=== PATIENT | female | born 1965 | race African-American/Black ===

== ENCOUNTER 2022-05-31 14:52 | Emergency (ER) | payer SELFPAY ==
[2022-05-31] VITALS (14 sets, daily range): BP systolic 91–120; BP diastolic 70–86; PULSE 77–97; RESP 12–17; TEMP 36.6; O2SAT 96–100
--- NOTE | 2022-05-31 15:02 | ECG_ITS ---
Measurements Intervals [place] Rate: 81 P: 23 AK: 152 QRS: 22 QRSD: 94 T: 33 QT: 380 QTc: 442 Interpretive Statements SINUS RHYTHM ST ELEVATION IN HIGH LATERAL LEADS- PROBABLY EARLY REPOLARIZATION ABNORMALITY BASELINE ARTIFACT- I, III, AVL, AVF, V4 BORDERLINE ECG Electronically Signed On 05-31-2022 16:24:39 CDT by Lars Olvera D.O.
[2022-05-31 15:32] LABS: Basophils Percent Auto 0.5 % (0.2-1.2); Eosinophils Absolute Auto 0.2 K/mm3 (0-0.3); Eosinophils Percent Auto 2.7 % (0-4.4); Hematocrit 34.9 % (37.0-47.0); Hemoglobin 10.9 g/dL (12.0-15.0); Immature Granulocyte Absolute 0.01 K/mm3 (0.00-0.031); Immature Granulocyte Percent A 0.2 % (0-0.5); Lymphocytes Absolute Auto 2.24 K/mm3 (0.9-3.2); Lymphocytes Percent Auto 38.4 % (18.3-44.2); Mean Corpuscular HGB Conc 31.2 g/dl (32-36); Mean Corpuscular Hemoglobin 26.3 pg (26-34); Mean Corpuscular Volume 84.3 fl (80-100); Mean Platelet Volume 9.6 fl (7.4-10.4); Monocytes Absolute Auto 0.4 K/mm3 (0.1-0.6); Neutrophils Percent Auto 51.2 % (45.5-73.1); Platelet Count Result 313 k/mm3 (150-375); Red Blood Count 4.14 M/mm3 (4.2-5.4); Red Cell Distribution Width 13.9 % (11.5-14.5); White Blood Count 5.8 K/mm3 (4.5-10.0)
[2022-05-31 15:42] LABS: Alanine Aminotransferase 22 U/L (6-35); Albumin Level 4.1 g/dL (3.5-5.1); Alkaline Phosphatase 66 U/L (38-126); Anion Gap 6 mmol/L (8-16); Aspartate Amino Transferase 23 U/L (14-36); Bilirubin,Total 0.3 mg/dL (0.2-1.3); Blood Urea Nitrogen 13 mg/dL (7-17); Calcium 8.4 mg/dL (8.4-10.2); Carbon Dioxide 28 mmol/L (22-30); Chloride 107 mmol/L (98-107); Estimated CRCL calculation 66 ml/min; Estimated Glomerular Filt Rate > 60; Glucose 140 mg/dL (65-110); Potassium 3.8 mmol/L (3.4-5.0); Sodium 141 mmol/L (137-145)
--- NOTE | 2022-05-31 15:45 | ED.SYNCOPE ---
HPI - Syncope General Chief Complaint: Syncope Stated Complaint: N/V/LETHERGY/SYNCOPAL Time Seen by Provider: 05/31/22 15:27 Source: patient, EMS and RN notes reviewed Mode of arrival: EMS Limitations: no limitations History of Present Illness HPI narrative: This is a 57 year old female who presents for evaluation of syncopal episode. Patient states she gave blood this morrning around 1030 am or 11 am. She reports she felt fine after giving blood. Afterwards , she ate lunch. She reports she was walking upstairs at work, and she developed nausea and dizziness. She reports she laid down on the floor and woke up from presumed syncopal episode. She was diaphoretic with her dizziness and nausea. She denies chest pain, sob, palpitations, or abdominal pain. She had emesis x 1. She was given zofran by EMS and NS 500 ml. Patient states she feels better. Review of Systems Review of Systems: All systems reviewed & are unremarkable except as noted in HPI and below Constitutional: Constitutional: Denies chills, Reports fatigue and Denies fever(s) ENT: Denies nasal congestion and Denies sore throat Cardiovascular: Cardiovascular: Denies chest pain, Denies rapid heart rate and Denies radiating jaw, neck or arm pain Respiratory: Respiratory: Denies chest congestion and Denies cough Gastrointestinal: Gastrointestinal: Denies abdominal pain, Denies diarrhea, Reports nausea and Reports vomiting Neurologic: Reports syncope and Denies headache(s) PMFSH Past Medical History Medical History (Updated 05/31/22 @ 18:16 by Danna Joyce MD) Patient denies medical problems Surgical History Surgical History (Updated 05/31/22 @ 15:50 by Danna Joyce MD) No pertinent past surgical history Social History Social History (Updated 05/31/22 @ 15:50 by Danna Joyce MD) Smoking status: Never smoker Exam Narrative: GENERAL: Well-appearing, well-nourished, and in no acute distress. HEAD: Normocephalic, atraumatic EYES: PERRLA and EOMI, conjunctiva clear without discharge THROAT:Mucous membranes moist, Oropharynx normal without erythema, exudate, peritonsillar swelling or fluctuance NECK: Supple, without lymphadenopathy or mass RESPIRATORY: No respiratory distress, Airway patent, Respirations non-labored, Clear to auscultation without rales, rhonchi or wheeze HEART: Regular rate and rhythm. No murmur heard. Normal peripheral pulses. ABDOMEN: Soft, nontender, nondistended, normal active bowel sounds. No masses. No rebound or guarding, No organomegaly. EXTREMITIES: No edema, normal strength with full range of motion. SKIN: Warm, dry, normal color without rash NEURO: Alert and oriented x3. CN 2-12 grossly intact. No focal deficits. PSYCH: Normal mood and affect. Course Reevaluation(s) Reevaluation #1: Patient has no complaints. She has been able to ambulate with out dizziness. She appeared to have vasovagal syncope. Date: 05/31/22 Time: 18:14 Vital Signs Vital signs: Vital Signs Temperature 98 F 05/31/22 14:51 Pulse Rate 82 05/31/22 14:51 Respiratory Rate 12 05/31/22 14:51 Blood Pressure 91/73 L 05/31/22 14:51 Pulse Oximetry 100 05/31/22 14:51 Oxygen Delivery Room Air 05/31/22 14:51 Temperature 98 F 05/31/22 14:51 Pulse Rate 79 05/31/22 18:01 Respiratory Rate 17 05/31/22 18:01 Blood Pressure 117/85 05/31/22 18:01 Pulse Oximetry 100 05/31/22 18:01 Oxygen Delivery Room Air 05/31/22 14:51 MDM - Syncope Lab Data Attestation: I reviewed the patient's lab results. Result diagrams: 05/31/22 15:16 05/31/22 15:16 Labs: Lab Results 05/31/22 05/31/22 05/31/22 Range/Units 15:16 15:16 16:16 WBC 5.8 (4.5-10.0) K/mm3 RBC 4.14 L (4.2-5.4) M/mm3 Hgb 10.9 L (12.0-15.0) g/dL Hct 34.9 L (37.0-47.0) % MCV 84.3 (80-100) fl MCH 26.3 (26-34) pg MCHC 31.2 L (32-36) g/dl RDW 13.9 (11.5-14.5) %
[2022-05-31] MEDS: LACTATED RINGERS 1,000 ML 999 ML IV CONT (16:15)
[2022-05-31 16:32] LABS: Lipase 211 U/L (23-300); Magnesium 2.2 mg/dL (1.6-2.3)
[2022-05-31 16:38] LABS: Prothrombin Time 12.4 Seconds (11.1-14.7)
[2022-05-31 16:39] LABS: Partial Thromboplastin Time 21.6 SECONDS (22.3-36.8)
[2022-05-31 16:44] LABS: D Dimer 0.29 ug/mL (<0.48)
[2022-05-31 16:45] LABS: Troponin I < 0.012 ng/mL (0.000-0.034)
== END 2022-05-31 18:36 | disposition home or self-care (01) ==
PROVIDERS: Emergency Medicine; Emergency Provider General Practice
DX: R55 Syncope and collapse (principal); R94.31 Abnormal electrocardiogram [ECG] [EKG]
CPT/HCPCS: 36415; 80053; 83690; 83735; 84484; 85025; 85380; 85610; 85730; 93005; 96360; 99284; J7120